=== PATIENT | female | born 1980 ===

== ENCOUNTER 2016-12-11 21:37 | Emergency (ER) | payer SELFPAY ==
[2016-12-11 22:50] VITALS: BP 145/100; PULSE 88; RESP 17; TEMP 98.3; O2SAT 100
--- NOTE | 2016-12-11 23:13 | ED PDOC ---
HPI: Headache Time Seen by Provider: 12/11/16 23:02 Chief Complaint (Nursing): Headache Chief Complaint (Provider): headache History Per: Patient History/Exam Limitations: no limitations Onset/Duration Of Symptoms: Days (2 weeks ) Current Symptoms Are (Timing): Intermittent Episodes Additional Complaint(s): 36yo female with no PMHx presents to the ED with c/o intermittent right sided headache described as being located behind right eye x 2 weeks. Patient reports headache is similar to her usual headaches. Did not take anything for pain. Denies visual changes, photophobia, n/v. Last CT was years ago. Past Medical History Reviewed: Historical Data, Nursing Documentation, Vital Signs Vital Signs: Last Vital Signs Temp 98.3 F 12/11/16 22:46 Pulse 88 12/11/16 22:46 Resp 17 12/11/16 22:46 BP 145/100 H 12/11/16 22:46 Pulse Ox 100 12/11/16 22:46 - Medical History PMH: No Chronic Diseases - Surgical History Surgical History: No Surg Hx - Family History Family History: States: No Known Family Hx - Social History Current smoker - smoking cessation education provided: Yes Alcohol: Social Drugs: Denies - Home Medications Home Medications: Ambulatory Orders Medication Instructions Recorded Tramadol HCl [Ultram] 50 mg PO Q6 #15 tab 08/23/15 - Allergies Allergies/Adverse Reactions: Allergies Allergy/AdvReac Type Severity Reaction Status Date / Time iodine Allergy ANGIOEDEMA Verified 08/23/15 13:59 shrimp Allergy ANGIOEDEMA Verified 08/23/15 13:59 Review of Systems ROS Statement: Except As Marked, All Systems Reviewed And Found Negative Eyes: Positive for: Other (no photophobia ). Negative for: Vision Change Gastrointestinal: Negative for: Nausea, Vomiting Neurological: Positive for: Headache Physical Exam - Reviewed Nursing Documentation Reviewed: Yes Vital Signs Reviewed: Yes - Physical Exam Appears: Positive for: Well, No Acute Distress Head Exam: Positive for: ATRAUMATIC, NORMAL INSPECTION, NORMOCEPHALIC Skin: Positive for: Normal Color, Warm, Dry Eye Exam: Positive for: Normal appearance, EOMI, PERRL ENT: Positive for: Normal ENT Inspection Neck: Positive for: Normal, Painless ROM, Supple Cardiovascular/Chest: Positive for: Regular Rate, Rhythm. Negative for: Murmur , Tachycardia Respiratory: Positive for: Normal Breath Sounds. Negative for: Wheezing, Respiratory Distress Gastrointestinal/Abdominal: Positive for: Normal Exam, Soft. Negative for: Tenderness Back: Positive for: Normal Inspection. Negative for: L CVA Tenderness, R CVA Tenderness Extremity: Positive for: Normal ROM. 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 Negative for: Motor/Sensory Deficits, Aphasia, Facial Droop - ECG O2 Sat by Pulse Oximetry: 100 Pulse Ox Interpretation: Normal (RA) Medical Decision Making Medical Decision Makin: Impression: right sided headache Plan: CT head urine preg Toradol 30mg IM reassess Scribe Attestation: Documented by Ciara Crespo acting as a scribe for Mini Conley MD. Provider Scribe Attestation: All medical record entries made by the Scribe were at my direction and personally dictated by me. I have reviewed the chart and agree that the record accurately reflects my personal performance of the history, physical exam, medical decision making, and the department course for this patient. I have also personally directed, reviewed, and agree with the discharge instructions and disposition.
--- NOTE | 2016-12-12 00:07 | ED PDOC ---
- ECG O2 Sat by Pulse Oximetry: 100 Medical Decision Making Medical Decision Making: Patient s/o from Dr. Conley at [address] 0057: CT head impression: No acute intracranial findings. 0115: Patient stable for d/c. Advised to f/u w/ PCP in 1-2 days and return to the ED with any worsening or concerning symptoms. Scribe Attestation: Documented by Ciara Crespo acting as a scribe for Milton Beasley MD. Provider Scribe Attestation: All medical record entries made by the Scribe were at my direction and personally dictated by me. I have reviewed the chart and agree that the record accurately reflects my personal performance of the history, physical exam, medical decision making, and the department course for this patient. I have also personally directed, reviewed, and agree with the discharge instructions and disposition. Disposition - Clinical Impression Clinical Impression: Migraine - POA Present On Arrival: None - Disposition Referrals: [facility] [Outside] [facility] [Outside] Disposition: Routine/Home Disposition Time: 01:15 Condition: IMPROVED Additional Instructions: follow up with your primary doctor in 1-2 days return to the ED with any worsening or concerning symptoms. Instructions: Migraine Headache (ED) Forms: [facility] ED School/Work Excuse
--- NOTE | 2016-12-12 09:17 | CT ---
PROCEDURE: CT HEAD WITHOUT CONTRAST. HISTORY: ELIZABETH COMPARISON: None available. TECHNIQUE: Axial computed tomography images were obtained through the head/brain without intravenous contrast. Radiation dose: Total exam DLP = 957.33 no mGy-cm. This CT exam was performed using one or more of the following dose reduction techniques: Automated exposure control, adjustment of the mA and/or kV according to patient size, and/or use of iterative reconstruction technique. FINDINGS: HEMORRHAGE: No intracranial hemorrhage. BRAIN: No mass effect or edema. No atrophy or chronic microvascular ischemic changes. VENTRICLES: Unremarkable. No hydrocephalus. CALVARIUM: Unremarkable. PARANASAL SINUSES: Unremarkable as visualized. No significant inflammatory changes. MASTOID AIR CELLS: Unremarkable as visualized. No inflammatory changes. OTHER FINDINGS: None. IMPRESSION: No acute intracranial abnormalities. No significant findings to account for the clinical presentation. Concordant results (preliminary interpretation) provided by [facility]. Procedure Completed: 00:30. Preliminary ([facility]) Report: Dictated and Authenticated: 00:57. Final Interpretation: 09:16. December 12, 2016.
== END 2016-12-12 01:27 | disposition home or self-care (01) ==
LOC: H.ER 21:37
DX: G43.909 Migraine, unspecified, not intractable, without status migrainosus (principal)
CPT/HCPCS: 70450; 81025; 96372; 99281; J1885